=== PATIENT | female | born 1965 | race Asian ===

== ENCOUNTER → 2019-01-17 | Emergency (ER) | payer OTHER ==
[~2019-01-17] MED LIST: DIPHTH/TETANUS/ACEL. PERTUSSIS IM ONE; HYDROMORPHONE HCL 1 MG/ML SYRINGE IVP ONE; IOPAMIDOL 76% 100 ML INFUS BTL 100 ML ONE; KETAMINE HCL 500 MG/5 ML VIAL IVP ONE; LR(*) 1000 ML BAG 1,000 ML IV ONE; ONDANSETRON 4 MG/2 ML VIAL IVP ONE; ONDANSETRON 4 MG/2 ML VIAL ONE; ceFAZolin(*) 2GM/D5W 50ML 50 ML IVPB ONE; fentaNYL CITR 100 MCG/2 ML AMP IVP ONE; fentaNYL CITR 100 MCG/2 ML AMP ONE
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
[2019-01-17 16:59] LABS: PLATELET COUNT, AUTOMATED 389 K/uL (150-450)
[2019-01-17 17:26] LABS: INR 0.96
--- NOTE | 2019-01-17 17:38 | RADIOLOGY IMAGING REPORT ---
FACILITY: [facility] - [place] PATIENT NAME: Isaura Brantley : 1965 MR: [id number] V: [id number] EXAM DATE: ORDERING PHYSICIAN: HOSSEIN CARNES TECHNOLOGIST: Location: [facility] Patient: Isaura Brantley : 1965 Visit/Account:[id number] Date of Sevice: 01/17/2019 TIBIA FIBULA LEFT HISTORY: fracture COMPARISON: None FINDINGS: AP and lateral views of the left lower leg demonstrates the presence of a dislocation of th e tibiotalar joint. There is no definite evidence of fracture of the tibia or fibula. IMPRESSION: Dislocation of the tibiotalar joint. No definite fracture is identified. Report Dictated By: Jose A Dunn at 01/17/2019 5:28 PM Report E-Signed By: Jose A Dunn at 01/17/2019 5:30 PM WSN:[id number]
--- NOTE | 2019-01-17 17:39 | RADIOLOGY IMAGING REPORT ---
FACILITY: [facility] PATIENT NAME: Isaura Brantley : 1965 MR: [id number] V: [id number] EXAM DATE: ORDERING PHYSICIAN: HOSSEIN CARNES TECHNOLOGIST: Location: [facility] - [place] Patient: Isaura Brantley : 1965 Visit/Account:[id number] Date of Sevice: 01/17/2019 Study: ANKLE 2 VIEW LEFT Indication: Injury Findings: AP lateral and oblique views of the left ankle were obtained. The examination demonstrates the presence of dislocation of the tibiotalar joint. The tibia is anter ior to the talus. There is no definite fracture of the distal tibia or distal fibula. The talus donell ears to be intact. The visualized tarsal bones are unremarkable. The visualized soft tissues are unremarkable. IMPRESSION: Dislocation of the tibiotalar joint Report Dictated By: Jose A Dunn at 01/17/2019 5:30 PM Report E-Signed By: Jose A Dunn at 01/17/2019 5:32 PM WSN:[id number]
--- NOTE | 2019-01-17 17:40 | RADIOLOGY IMAGING REPORT ---
FACILITY: [facility] - [place] PATIENT NAME: Isaura Brantley : 1965 MR: [id number] V: [id number] EXAM DATE: ORDERING PHYSICIAN: HOSSEIN CARNES TECHNOLOGIST: Location: [facility] [place] Patient: Isaura Brantley : 1965 Visit/Account:[id number] Date of Sevice: 01/17/2019 Study: FEMUR LEFT Indication: Injury Comparison study: None available Findings: AP and lateral views of the left femur demonstrates that the left femoral head and neck are unremarkable in appearance. There is no evidence of fracture of the femur. There is no evidence of lytic or blastic bony lesions. The visualized soft tissues are unremarkable. IMPRESSION: Unremarkable exam Report Dictated By: Jose A Dunn at 01/17/2019 5:32 PM Report E-Signed By: Jose A Dunn at 01/17/2019 5:33 PM WSN:[id number]
[2019-01-17 18:45] VITALS: BP 156/106
--- NOTE | 2019-01-17 18:59 | RADIOLOGY IMAGING REPORT ---
FACILITY: [facility] PATIENT NAME: Isaura Brantley : 1965 MR: [id number] V: [id number] EXAM DATE: ORDERING PHYSICIAN: HOSSEIN CARNES TECHNOLOGIST: Location: [facility] Patient: Isaura Brantley : 1965 Visit/Account:[id number] Date of Sevice: 01/17/2019 EXAMINATION: CT Cervical spine without intravenous contrast Comparison: None. History: Fall. Left ankle fracture. Possible neck injury. Procedure: Multiplanar noncontrast cervical spine CT. One of the following dose optimization techniques was utilized in the performance of this exam: Autom ated exposure control; adjustment of the mA and/or kV according to the patient's size; or use of an i terative reconstruction technique. Specific details can be referenced in the facility's radiology C T exam operational policy. FINDINGS: Visualized brain: Negative. Alignment: Within normal limits. Cranio-cervical junction: Within normal limits. Vertebral bodies: No fracture. Posterior neural arch: Negative. Disc spaces: Negative. Hardware: None. Soft tissues: Negative. Visualized upper chest: Negative. IMPRESSION: No cervical spine fracture or malalignment. Report Dictated By: Gregory Velazquez MD at 01/17/2019 6:46 PM Report E-Signed By: Gregory Velazquez MD at 01/17/2019 6:51 PM WSN:[id number]
--- NOTE | 2019-01-17 19:18 | RADIOLOGY IMAGING REPORT ---
FACILITY: [facility] PATIENT NAME: Isaura Brantley : 1965 MR: [id number] V: [id number] EXAM DATE: ORDERING PHYSICIAN: HOSSEIN CARNES TECHNOLOGIST: Location: [facility] - [place] Patient: Isaura Brantley : 1965 Visit/Account:[id number] Date of Sevice: 01/17/2019 ADDENDUM #1 ADDENDUM: There is an error in the procedure. This is a contrast-enhanced CT with 75 mL intravenous Isovue 370. The venous structures appear grossly normal although evaluation for an arterial injury is limited by the venous phase of enhancement. If there is a clinical concern for arterial trauma this would be bet ter evaluated by angiography. Report content is otherwise unchanged. Report Dictated By: Gregory Velazquez MD at 01/17/2019 7:13 PM Report E-Signed By: Gregory Velazquez MD at 01/17/2019 7:16 PM ORIGINAL REPORT Examination: CT ANKLE W/ LT Comparison: Radiographs earlier the same day. History: Open fracture. Procedure: Multiplanar noncontrast CT left ankle. One of the following dose optimization techniques was utilized in the performance of this exam: Autom ated exposure control; adjustment of the mA and/or kV according to the patient's size; or use of an i terative reconstruction technique. Specific details can be referenced in the facility's radiology C T exam operational policy. Findings: The talus is dislocated posteriorly and medial relative to the tibia and the entirety of th e foot is rotated approximately 40 degrees internally. The talar dome abuts the posterior malleolus. Distal tibiofibular joint alignment is within normal limits. The fibula extends through an open soft tissue defect with gas tracking cephalad through the deep and superficial soft tissues. A review very tiny radiopaque foci adjacent to the protruding fibula and lateral malleolus are favored to be radio paque foreign bodies, less likely tiny avulsion fracture fragments. Small likely corticated osseous fragment adjacent to the lateral talus is more suggestive of remote t rauma or an accessory ossification center with an acute avulsion fracture considered less likely. A p robable os perineum and os navicularis are noted as well. No definite acute fracture is identified al moe the visualized tibia, fibula, talus, or hindfoot. Subtalar alignment is within normal limits although there is trace gas within the posterior facet. No calcaneal fracture. Midfoot alignment is within normal limits and the visualized portions of the for efoot are unremarkable. The peroneal tendons are no longer within the fibula peroneal groove but do appear to be grossly inta ct. Soft tissue internal arrangement would be otherwise better characterized by MRI. IMPRESSION: 1. Tibiotalar dislocation as described above. 2. Distal fibula extends through an open soft tissue defect with gas tracking throughout the deep and subcutaneous soft tissues. There are likely a few tiny radiopaque foreign bodies along the distal fi bula. 3. No definite fracture is identified. 4. The peroneal tendons are displaced from the peroneal groove, consistent with a peroneal retinaculu m disruption. Consider MRI to further evaluate soft tissue trauma as clinically indicated. 5. Trace gas within the subtalar joint. No fracture or malalignment is otherwise identified at this j oint and this could be related to vacuum phenomenon but correlation with any clinical evidence of int ra-articular injury is recommended. Report Dictated By: Gregory Velazquez MD at 01/17/2019 6:51 PM Report E-Signed By: Gregory Velazquez MD at 01/17/2019 7:10 PM WSN:[id number]
--- NOTE | 2019-01-17 19:20 | RADIOLOGY IMAGING REPORT ---
FACILITY: [facility] - [place] PATIENT NAME: Isaura Brantley : 1965 MR: [id number] V: [id number] EXAM DATE: ORDERING PHYSICIAN: HOSSEIN CARNES TECHNOLOGIST: Location: [facility] Patient: Isaura Brantley : 1965 Visit/Account:[id number] Date of Sevice: 01/17/2019 Examination: ANKLE 2 VIEW LEFT Comparison: Earlier the same day. History: post reduction Findings: Improved postreduction alignment. The tibiotalar joint in near anatomic alignment with only minimal lateral asymmetric joint widening. No definite acute fracture is identified. Diffuse soft ti ssue swelling with a lateral soft tissue wound. IMPRESSION: Left ankle improved postreduction alignment as described in the body of the report. Report Dictated By: Gregory Velazquez MD at 01/17/2019 7:10 PM Report E-Signed By: Gregory Velazquez MD at 01/17/2019 7:12 PM WSN:[id number]
== END ==
LOC: ER 16:16
DX: S93.05XA Dislocation of left ankle joint, initial encounter (principal)
CPT/HCPCS: 72125; 73552; 73590; 73600; 73701; 80320; 83605; 83690; 85025; 85610; 85730; 96365; 96375; 96376; 99285; J1170; J2405; J3010; J7120; L0172; Q9967; 82040; 82247; 82310; 82374; 82435; 82565; 82947; 84075; 84132; 84155; 84295; 84450; 84460; 84520; J0690

== ENCOUNTER → 2019-01-17 | Outpatient (CLI) | payer OTHER | LOC: AMB 19:01 | PROVIDERS: ATTEND Nurse Practitioner | DX: S93.05XA Dislocation of left ankle joint, initial encounter (principal) | CPT/HCPCS: A0425; A0426 ==